=== PATIENT | male | born 1990 | race African-American/Black ===

== ENCOUNTER 2017-12-22 19:59 | Emergency (ER) | payer SELFPAY ==
[2017-12-22] MEDS ORDERED: FENTANYL CITRATE INJ/PF 100 MCG/2 ML AMPUL IM ONE (20:33)
--- NOTE | 2017-12-22 20:49 | RADIOLOGY REPORT (SQ) ---
EXAM DESCRIPTION: SHOULDER LEFT 2 OR MORE VIEWS COMPLETED DATE/TIME: 12/22/2017 8:31 pm REASON FOR STUDY: fall, pop COMPARISON: None. NUMBER OF VIEWS: Three views. TECHNIQUE: Internal rotation, external rotation, and Y view images acquired of the left shoulder. LIMITATIONS: None. FINDINGS: Acute anterior left humeral head dislocation out of the bony glenoid. Normal bone density. No fracture. Left upper ribs, visualized left lung clear. IMPRESSION: Acute left anterior glenohumeral dislocation TECHNICAL DOCUMENTATION: JOB ID: [id number] [employer]- All Rights Reserved Reading location - IP/workstation name: [email or web address]
[2017-12-22] MEDS ORDERED: FENTANYL CITRATE INJ/PF 100 MCG/2 ML AMPUL IV ONE (20:53)
[2017-12-22] MEDS ORDERED: PROPOFOL INJ 200 MG/20 ML VIAL IV ONE ×2 (21:34→22:16)
--- NOTE | 2017-12-22 21:38 | ER Document Report ---
ED Extremity Problem, Upper - General Chief Complaint: Shoulder Injury Stated Complaint: NEGINUDER INJURY Time Seen by Provider: 12/22/17 20:19 Notes: Patient is a 27-year-old male who presents emergency department complaining of left shoulder pain. Patient states he was playing football when he fell and landed and felt a pop and pain in his left shoulder. States that he is previously dislocated his right shoulder in a similar fashion. He admits to pain in his shoulder but denies any numbness or tingling, loss of sensation distal to the injury. Past Medical History - Social History Smoking Status: Unknown if Ever Smoked Family History: Reviewed & Not Pertinent Patient has suicidal ideation: No Patient has homicidal ideation: No Renal/ Medical History: Denies: Hx Peritoneal Dialysis Review of Systems - Review of Systems Notes: REVIEW OF SYSTEMS: CONSTITUTIONAL : Denies fever, chills, or sweats. Denies recent illness. CARDIOVASCULAR: Denies chest pain. Denies palpitations or racing or irregular heart beat. Denies ankle edema. RESPIRATORY: Denies cough, cold, or chest congestion. Denies shortness of breath, difficulty breathing, or wheezing. GASTROINTESTINAL: Denies abdominal pain or distention. Denies nausea, vomiting , or diarrhea. Denies blood in vomitus, stools, or per rectum. Denies black, tarry stools. Denies constipation. MUSCULOSKELETAL: see hpi. Denies any muscle spasms, difficulty walking SKIN: Denies rash, lesions or sores. NEUROLOGICAL: Denies confusion or altered mental status. Denies passing out or loss of consciousness. Denies dizziness or lightheadedness. Denies headache. Denies weakness or paralysis or loss of use of either side. Denies problems with gait or speech. Denies sensory loss, numbness, or tingling. Denies seizures. PSYCHIATRIC: Denies anxiety or stress. Denies depression, suicidal ideation, or homicidal ideation. ALL OTHER SYSTEMS REVIEWED AND NEGATIVE. Dictation was performed using [employer] voice recognition software Physical Exam - Vital signs Vitals: Temp Pulse Resp BP Pulse Ox 99.1 F 85 22 H 129/85 H 98 12/22/17 20:09 12/22/17 20:09 12/22/17 20:09 12/22/17 20:09 12/22/17 20:09 - Notes Notes: PHYSICAL EXAM GENERAL: Alert, interacts well. HEAD: Normocephalic, atraumatic. EYES: Pupils equal, round, and reactive to light. Extraocular movements intact. NECK: Full range of motion. Supple. Trachea midline. LUNGS: Clear to auscultation bilaterally, no wheezes, rales, or rhonchi. No respiratory distress. HEART: Regular rate and rhythm. No murmurs, gallops, or rubs. EXTREMITIES: Moves all extremities spontaneously except for the left shoulder with visible deformity of the left humeral head in a anterolateral location. No edema, radial 2/4 bilaterally. No cyanosis. NEUROLOGICAL: Alert and oriented x4. Normal speech. PSYCH: Normal affect, normal mood. SKIN: Warm, dry, normal turgor. No rashes or lesions noted. Course - Re-evaluation Re-evalutation: 12/22/17 22:20 Patient is a 27 year old male who is hemodynmaically stable, no acute distress with presentation of acute left shoulder dislocation without distal deformity concerning for fracture. Able to move distal extremity without difficulty. X- ray shows a left anterior glenohumeral dislocation without fracture. Please see attached procedure note for procedural sedation and reduction with Dr. Alvin Thompson. Post reduction film with successful reduction and patient comfortable in shoulder immobilizer. Discussed strict return precautions and follow up recommendations. stable for discharge home - Vital Signs Vital signs: Temp Pulse Resp BP Pulse Ox 99.1 F 84 20 156/93 H 86 L 12/22/17 20:09 12/22/17 21:58 12/22/17 22:07 12/22/17 22:07 12/22/17 22:07 - Diagnostic Test Radiology reviewed: Image reviewed, Reports reviewed Discharge - Discharge Clinical Impression: Shoulder dislocation Qualifiers: Encounter type: initial encounter Laterality: left Qualified Code(s): S43.005A - Unspecified dislocation of left shoulder joint, initial encounter Condition: Good Disposition: HOME, SELF-CARE Instructions: Shoulder Dislocation ([facility]), Sling as Treatment ([facility]) Prescriptions: Ibuprofen [Motrin 800 mg Tablet] 800 mg PO Q8H PRN #30 tab PRN Reason: Forms: Special Work Note, Return to Work Referrals: MAT CHOWDHURY DO [ACTIVE STAFF] - Follow up in 1 week
--- NOTE | 2017-12-22 21:58 | ER Document Report ---
Doctor's Note Notes: 12/22/17 21:57 I was consulted by the physician law office assistant Herminia caring for this patient for assistance with reduction of the left shoulder. Patient was sedated using a standard protocol using propofol a total of 225 mg was administered. After adequate sedation had been achieved the left shoulder was reduced without difficulty on the first attempt. Postreduction films will be obtained and he has been placed in a sling. Procedures - Conscious Sedation Conscious sedation Time started: 21:40 Time completed: 21:50 Consent obtained: Yes Indication: Left shoulder reduction Prior complications: Procedural sedation Normal healthy pt.: P1. - ASA Classification Airway Evaluation: Normal anatomy Mallampati Classification: Class 2 Used during procedure: Suction available, IV access obtained, Pulse ox on pt., lunchroom monitor on pt. Medications administered: Diprivan Reversal agents: None I personally performed/intraservice time: Sedation, Procedure, 30 min or less Complications: No - Joint Reduction/Fracture Care Left Shoulder Time completed: 21:50 Consent obtained: Yes Conscious sedation: Yes Pre-procedure NV exam: Yes Manipulation comment: downward traction, external rotation Post-procedure NV exam: Yes Post-reduction x-ray: Joint reduced Reduction attempts: 1 Complications: No
--- NOTE | 2017-12-22 22:33 | RADIOLOGY REPORT (SQ) ---
EXAM DESCRIPTION: SHOULDER LEFT 1 VIEW COMPLETED DATE/TIME: 12/22/2017 10:09 pm REASON FOR STUDY: post-reduction COMPARISON: Left shoulder three views 12/22/2017 NUMBER OF VIEWS: AP view TECHNIQUE: AP view of the left shoulder. LIMITATIONS: None. FINDINGS: Normal alignment at the left glenohumeral joint. Normal alignment at the left AC joint. No gross acute fracture. IMPRESSION: Post successful reduction anterior left glenohumeral dislocation. No gross acute fractu re TECHNICAL DOCUMENTATION: JOB ID: [id number] [employer]- All Rights Reserved Reading location - IP/workstation name: [email or web address]
[2017-12-22 22:38] VITALS: BP 156/93
== END 2017-12-22 22:52 | disposition home or self-care (01) ==
LOC: ER 19:59
PROC: 0RSKXZZ Reposition Left Shoulder Joint, External Approach (ICD-10-PCS; principal; 2017-12-22)
DX: S43.015A Anterior dislocation of left humerus, initial encounter (principal); W18.30XA Fall on same level, unspecified, initial encounter; Y93.61 Activity, american tackle football
CPT/HCPCS: 99284; 99152; 73020; 73030; 23650; L3650; J3010